=== PATIENT | female | born 1945 | race Caucasian/White ===

== ENCOUNTER → 2017-04-17 | Outpatient (CLI) | payer MEDICARE ==
[2015-07-23 14:15] VITALS: BP 148/77
[~2017-04-17] MED LIST: ASPI-482 PO; ATORVASTATIN CA80 MG PO; CARV6.252 PO; MULT1TAB97 PO
[2017-04-17 09:57] LABS: ALBUMIN 3.5 g/dL (3.4-5.0); ALBUMIN/GLOBULIN RATIO 0.8 (1.0-1.7); CREATININE 0.8 mg/dL (0.6-1.0); GFR 70.9; POTASSIUM 4.4 mmol/L (3.5-5.1); TOTAL BILIRUBIN 0.6 mg/dL (0.2-1.0)
[2017-04-17 10:20] LABS: FREE T4 0.85 ng/dL (0.76-1.46)
== END | disposition home or self-care (01) ==
LOC: LAB 09:10
PROVIDERS: ATTEND Psychiatry & Neurology Neurology
DX: R41.3 Other amnesia (principal)
CPT/HCPCS: 36415; 80053; 82306; 82607; 84439; 84443

== ENCOUNTER → 2017-05-01 | Outpatient (CLI) | payer BC ==
[2015-07-23 14:15] VITALS: BP 148/77
== END | disposition home or self-care (01) ==
LOC: RT 08:58
PROVIDERS: ATTEND Psychiatry & Neurology Neurology
DX: R41.3 Other amnesia (principal)
CPT/HCPCS: 95816

== ENCOUNTER → 2018-05-06 | Outpatient (CLI) | payer BC ==
[2018-05-06 18:41] LABS: VITAMIN-B12 552 pg/mL (247-911)
== END | disposition home or self-care (01) ==
LOC: LAB 14:56
DX: M81.0 Age-related osteoporosis without current pathological fracture (principal); R41.3 Other amnesia
CPT/HCPCS: 36415; 82306; 82607

== ENCOUNTER → 2018-05-19 | Outpatient (CLI) | payer BC | END | disposition home or self-care (01) | LOC: RT 08:12 | DX: R56.9 Unspecified convulsions (principal) | CPT/HCPCS: 95816 ==

== ENCOUNTER 2018-11-01 07:48 | Day surgery (SDC) | payer BC ==
[~2018-11-01] VITALS: Ht 165.1 cm; Wt 72.1 kg
[~2018-11-01 07:48] MED LIST changes: +ALEN70TA5 PO; +CARV6.2511 PO; -CARV6.252 PO; +HYDROmorphone 2 MG/ML VIAL IV PRN; +IV RINGERS,LACTATED 1000ML 1,000 ML IV SCH; +LIDOCAINE 1% PF 2 ML VIAL. ID PRN; +LISI10TA2 PO; +MORPHINE SULFATE 2 MG/ML VIAL. IV PRN; +ONDANSETRON PF 4 MG/2 ML VIAL. IV PRN; +PROCHLORPERAZINE 10 MG/2 ML VIAL. IV PRN; +VITA1CAP PO; +fentaNYL PF VIAL 100 MCG/2 ML VIAL IV PRN
[2018-11-01] MEDS ORDERED: fentaNYL PF VIAL 100 MCG/2 ML VIAL ONE ×4 (08:34→11:57)
[2018-11-01] MEDS ORDERED: LIDOCAINE 2% PF Vial for OR 5 ML VIAL. ONE (08:34)
[2018-11-01] MEDS ORDERED: PROPOFOL 20 ML IV ONE (08:34)
--- NOTE | 2018-11-01 09:33 | DISCH ---
DISCHARGE INSTRUCTIONS Condition on Discharge Condition on Discharge: Stable Activity After Discharge Activity Instructions for Disc: Other, see below Other activity instructions: arm to remain in sling; NWB LUE Bathing Instructions: Shower-keep dressing dry Driving Instructions after Dis: Do not drive today Weight Bearing Status after Di: Non weight bearing Diet after Discharge Diet after Discharge: Regular Wound Incision Care Wound/Incision Care: Ice to area for comfort, Keep wound/cast CDI, Keep wound elevated, Do not change dressing Checks after Discharge Checks after discharge: Check blood press - daily Contacting the DRElia after DC Call your doctor for: Concerns you may have Follow-Up Follow up with: Yeyo in 2 wks NOBLE HIGHTOWER II, MD Nov 01, 2018 09:33
[2018-11-01] MEDS ORDERED: BUPIVACAINE MPF 0.5% 30 ML VIAL. ONE (09:49)
[2018-11-01] MEDS ORDERED: LIDOCAINE 1% 20 ML VIAL. ONE (09:49)
[2018-11-01] MEDS ORDERED: methylPREDNISolone ACETATE 80 MG/ML VIAL. ONE (09:51)
[2018-11-01] MEDS ORDERED: DEXAMETHASONE SOD PHOS 20 MG/5 ML VIAL. ONE (10:00)
[2018-11-01] MEDS ORDERED: ONDANSETRON PF 4 MG/2 ML VIAL. ONE (10:00)
[2018-11-01] MEDS ORDERED: ePHEDrine PF IN SALINE 50 MG/5 ML DISP.SYRIN IV ONE (10:04)
[2018-11-01] MEDS ORDERED: hydrALAZINE 20 MG/ML VIAL. ONE (10:12)
[2018-11-01] MEDS ORDERED: SEVOFLURANE 61 TO 120 MINUTES. IH ONE ×2 (10:39→10:58)
[2018-11-01] MEDS ORDERED: SEVOFLURANE 31 TO 60 MINUTES. IH ONE (10:43)
--- NOTE | 2018-11-01 11:11 | PDOC4 ---
Operative Note Operative Note Date of procedure: 11/01/2018 Surgeon: Ruben Hightower Electrophysiology Technologist: Tim Villanueva APRN Preoperative diagnosis: #1 Displaced and angulated left distal radius fracture #2 right knee primary degenerative joint disease Postoperative diagnosis: Same Procedure performed: #1 Open reduction internal fixation extra-articular left distal radius fracture #2 right knee injection with 80 mg of Depo-Medrol and local anesthetic Anesthesia: Gen. Findings: Acute fracture Tourniquet time: 36 min Blood loss: 10mL Components inserted: Cook and nephew volar 4-hole distal radius locking plate Complications: none Reason for procedure: Patient is a very pleasant female who had a ground-level fall about 2 weeks ago. She was referred to my outpatient orthopedic surgery clinic from the emergency department. I evaluated her clinically and discussed the rationale to operative intervention after examining her in the radiographs. The risks, benefits, alternatives were discussed with her and she wished to proceed. Description was procedure: Patient was greeted in the preoperative area by myself where the correct extremity was verified and marked. She was taken to the operative suite and her antibiotics were started as she was brought back. Once in the operating room, she was transferred gently supine to the operating table and secured to the bed with all pressure points padded. Successful induction of a general anesthetic placed. I then used a ChloraPrep over her superolateral right knee and injected 80 mg of Depo-Medrol and local anesthetic without competition. The area was cleansed and dried and a sterile dressing was applied. A nonsterile tourniquet was applied to her left upper extremity and the left upper extremity had the splint removed and a chlorhexidine pre-scrub performed. The left upper trimming was then prepped and draped in our usual sterile fashion and we conducted our standard preoperative timeout. After this, I palpated and marked surface anatomy and barbara a line from my standard volar distal radius incision. I palpated and marked the radial artery. The extremity was then exsanguinated with an Esmarch and tourniquet insufflated to 250 mmHg. After this, I incised skin with a scalpel and dissected subcutaneous tissues tissue until identified the FCR tendon with tenotomies. I then incised fascia in line with the skin incision. I bluntly dissected down to the pronator quadratus and took this off with electrocautery. I used the periosteal elevator to expose the distal radius. I used a metal tipped suction, small curet, and dental pick to debride the fracture site. I then performed my reduction maneuver and held my plate in place with digital pressure Y confirmed good reduction and plate position on AP oblique and lateral fluoroscopic imaging. I then secured the plate to the bone with a nonlocking screw. I then placed locking screws into the distal segment followed by securing the plate to the bone with more nonlocking screws proximal the fracture site. I then took my final images and irrigated out the operative field. Pronator was reapproximated with gxfyiu-by-kstzh 2-0 Vicryl. Fascia was left open. Inverted interrupted 2 was used for subcutaneous tissue and 3-0 nylon in a mattress fashion for skin. I injected local anesthetic around the isamar-incisional soft tissues. The arm was cleansed and dried. Prior to closing skin, all counts correct 2 and the tourniquet had been let down and bleeders cauterized. At this point, we placed a well-padded sugar tong splint. She was then awakened from anesthesia, she tolerated surgery well. She was transferred gently supine to the recovery room cart and taken to PACU in a stable and extubated condition per postoperative plan is to be nonweightbearing. Elevation and active range of motion at fingers encouraged. We will see her back in 2 weeks, sooner should a problem arise. She will be discharged today. RUBEN HIGHTOWER II, MD Nov 01, 2018 11:11
[2018-11-01] MEDS ORDERED: HYDROcodone/APAP 5/325MG 1 TAB TABLET PO ONE (11:30)
[2018-11-01] MEDS: fentaNYL PF VIAL 100 MCG/2 ML VIAL IV PRN ×4 (11:38→12:13)
[2018-11-01] MEDS ORDERED: MORPHINE SULFATE 2 MG/ML VIAL. ONE (11:50)
[2018-11-01 12:45] VITALS: BP 166/84
== END 2018-11-01 12:45 | disposition home or self-care (01) ==
LOC: SURG 07:48
PROVIDERS: ATTEND Orthopaedic Surgery Sports Medicine
DX: S52.552A Other extraarticular fracture of lower end of left radius, initial encounter for closed fracture (principal); M17.11 Unilateral primary osteoarthritis, right knee; I25.10 Atherosclerotic heart disease of native coronary artery without angina pectoris; Z95.1 Presence of aortocoronary bypass graft; Z88.1 Allergy status to other antibiotic agents; W18.39XA Other fall on same level, initial encounter; Y93.89 Activity, other specified; Y92.89 Other specified places as the place of occurrence of the external cause; Y99.8 Other external cause status
CPT/HCPCS: 20610; 25607; 76000; A7015; C1713; J0360; J0690; J1040; J1100; J2001; J2270; J2405; J2704; J3010; J3490

== ENCOUNTER 2018-12-05 10:03 | Emergency (ER) | payer BC ==
[~2018-12-05] VITALS: Ht 162.6 cm; Wt 70.3 kg
[~2018-12-05 10:03] MED LIST changes: -HYDROmorphone 2 MG/ML VIAL IV PRN; -IV RINGERS,LACTATED 1000ML 1,000 ML IV SCH; -LIDOCAINE 1% PF 2 ML VIAL. ID PRN; -MORPHINE SULFATE 2 MG/ML VIAL. IV PRN; -ONDANSETRON PF 4 MG/2 ML VIAL. IV PRN; -PROCHLORPERAZINE 10 MG/2 ML VIAL. IV PRN; -fentaNYL PF VIAL 100 MCG/2 ML VIAL IV PRN
--- NOTE | 2018-12-05 10:42 | EKG ---
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
[2018-12-05] MEDS ORDERED: cloNIDine HCL 0.1 MG TABLET PO ONE (10:45)
[2018-12-05 11:00] LABS: BASO % 1 % (0-3); CALCIUM 9.2 mg/dL (8.5-10.1); CREATININE 0.8 mg/dL (0.6-1.0); EOS # 0.1 x10^3/uL (0.0-0.7); EOS % 2 % (0-3); GFR 70.5; HEMATOCRIT 44.2 % (36.0-47.0); HEMOGLOBIN 15.5 g/dL (12.0-15.5); LYMPH # 1.3 x10^3/uL (1.0-4.8); LYMPH % 19 % (24-48); MEAN CORPUSCULAR HEMOGLOBIN 31 pg (25-35); MEAN CORPUSCULAR HGB CONC 35 g/dL (31-37); MEAN CORPUSCULAR VOLUME 87 fL (79-100); MONO # 0.5 x10^3/uL (0.0-1.1); MONO % 8 % (0-9); NEUT # 4.9 x10^3uL (1.8-7.7); NEUT % 71 % (31-73); PLATELET COUNT 234 x10^3/uL (140-400); POTASSIUM 3.5 mmol/L (3.5-5.1); RED BLOOD COUNT 5.08 x10^6/uL (3.50-5.40); RED CELL DISTRIBUTION WIDTH 14.3 % (11.5-14.5); WHITE BLOOD COUNT 6.9 x10^3/uL (4.0-11.0)
[2018-12-05 11:08] LABS: ALBUMIN 3.2 g/dL (3.4-5.0); ALBUMIN/GLOBULIN RATIO 0.8 (1.0-1.7); TOTAL BILIRUBIN 0.6 mg/dL (0.2-1.0); TOTAL PROTEIN 7.2 g/dL (6.4-8.2)
--- NOTE | 2018-12-05 11:37 | PHYS DOC ---
Past Medical History Past Medical History: Anxiety, CVA, Depression, High Cholesterol, Heart Disease , Hypertension, Other Additional Past Medical Histor: short term memory loss post cva Past Surgical History: Coronary Bypass Surgery, Other Additional Past Surgical Histo: left wrist Alcohol Use: None Drug Use: None Adult General Chief Complaint Chief Complaint: HYPERTENSION HPI HPI Patient is a 73 year old female presents the emergency room a chief complaint of high blood pressure has been in the 190s at home her head felt a little heavy but she's had no headache no chest pain no shortness of breath at this time she has had intermittent dyspnea on exertion for a year she is trying to quit smoking her doctor who has retired Dr. Bronson thought that that was related to the smoking. Currently she feels fine her son finally convinced her to come to the emergency room due to the elevated blood pressure that she has been checking daily since . Review of Systems Review of Systems Constitutional: Denies fever or chills [] Eyes: Denies change in visual acuity, redness, or eye pain [] HENT: Denies nasal congestion or sore throat [] Musculoskeletal: Denies back pain or joint pain [] Integument: Denies rash or skin lesions [] Neurologic: Denies headache, focal weakness or sensory changes [] All other systems were reviewed and found to be within normal limits, except as documented in this note. Current Medications Current Medications Current Medications Medications (Trade) Dose Ordered Sig/Telly Start Time Stop Time Status Last Admin Dose Admin Clonidine HCl (Catapres) 0.1 mg 1X ONCE 12/05/18 10:45 12/05/18 10:46 DC 12/05/18 10:52 0.1 MG Allergies Allergies Allergies Coded Allergies Type Severity Reaction Last Updated Verified niacin Adverse Reaction Intermediate HALLUCINATIONS 10/29/18 Yes Physical Exam Physical Exam Constitutional: Well developed, well nourished, no acute distress, non-toxic appearance. [] HENT: Normocephalic, atraumatic, bilateral external ears normal, oropharynx moist, no oral exudates, nose normal. [] Eyes: PERRLA, EOMI, conjunctiva normal, no discharge. [] Neck: Normal range of motion, no tenderness, supple, no stridor. [] Cardiovascular:Heart rate regular rhythm, no murmur [] Lungs & Thorax: Bilateral breath sounds clear to auscultation [] Abdomen: Bowel sounds normal, soft, no tenderness, no masses, no pulsatile masses. [] Skin: Warm, dry, no erythema, no rash. [] Back: No tenderness, no CVA tenderness. [] Extremities: No tenderness, no cyanosis, no clubbing, ROM intact, no edema. [] Neurologic: Alert and oriented X 3, normal motor function, normal sensory function, no focal deficits noted. [] Psychologic: Affect normal, judgement normal, mood normal. [] Current Patient Data Vital Signs Vital Signs Date Time Temp Pulse Resp B/P (MAP) Pulse Ox O2 Delivery O2 Flow Rate FiO2 12/05/18 11:42 54 10 95 12/05/18 10:52 192/93 12/05/18 10:12 99.5 Room Air 99.5 Lab Values Laboratory Tests Test 12/05/18 10:29 White Blood Count 6.9 x10^3/uL (4.0-11.0) Red Blood Count 5.08 x10^6/uL (3.50-5.40) Hemoglobin 15.5 g/dL (12.0-15.5) Hematocrit 44.2 % (36.0-47.0) Mean Corpuscular Volume 87 fL (79-100) Mean Corpuscular Hemoglobin 31 pg (25-35) Mean Corpuscular Hemoglobin Concent 35 g/dL (31-37) Red Cell Distribution Width 14.3 % (11.5-14.5) Platelet Count 234 x10^3/uL (140-400) Neutrophils (%) (Auto) 71 % (31-73) Lymphocytes (%) (Auto) 19 % (24-48) L Monocytes (%) (Auto) 8 % (0-9) Eosinophils (%) (Auto) 2 % (0-3) Basophils (%) (Auto) 1 % (0-3) Neutrophils # (Auto) 4.9 x10^3uL (1.8-7.7) Lymphocytes # (Auto) 1.3 x10^3/uL (1.0-4.8) Monocytes # (Auto) 0.5 x10^3/uL (0.0-1.1) Eosinophils # (Auto) 0.1 x10^3/uL (0.0-0.7) Basophils # (Auto) 0.0 x10^3/uL (0.0-0.2) Sodium Level 141 mmol/L (136-145) Potassium Level 3.5 mmol/L (3.5-5.1) Chloride Level 104 mmol/L (98-107) Carbon Dioxide Level 28 mmol/L (21-32) Anion Gap 9 (6-14) Blood Urea Nitrogen 11 mg/dL (7-20) Creatinine 0.8 mg/dL (0.6-1.0) Estimated GFR (Cockcroft-Gault) 70.5 BUN/Creatinine Ratio 14 (6-20) Glucose Level 94 mg/dL (70-99) Calcium Level 9.2 mg/dL (8.5-10.1) Total Bilirubin 0.6 mg/dL (0.2-1.0) Aspartate Amino Transferase (AST) 18 U/L (15-37) Alanine Aminotransferase (ALT) 17 U/L (14-59) Alkaline Phosphatase 112 U/L (46-116) Troponin I Quantitative 0.051 ng/mL (0.000-0.055) Total Protein 7.2 g/dL (6.4-8.2) Albumin 3.2 g/dL (3.4-5.0) L Albumin/Globulin Ratio 0.8 (1.0-1.7) L Laboratory Tests 12/05/18 10:29 Laboratory Tests 12/05/18 10:29 EKG EKG [] Interpretation Time: EKG shows normal sinus rhythm rate of [address] changes noted laterally. No STEMI seen interpreted by me time of encounter. SIMILAR TO 07/21/15 Radiology/Procedures Radiology/Procedures [] Course & Med Decision Making Course & Med Decision Making Pertinent Labs and Imaging studies reviewed. (See chart for details) []71-year-old female presenting with essentially a symptomatic hypertension. Improvement in the emergency room with a dose of clonidine EKG looks the same labs look good amlodipine was added to her lisinopril retroverted recommended follow-up within 2 weeks for recheck of blood pressure return precautions advised no evidence of end organ damage in the emergency room reviewed with son who is in agreement. Dragon Disclaimer Dragon Disclaimer This electronic medical record was generated, in whole or in part, using a voice recognition dictation system. Departure Departure Impression: Primary Impression: Elevated blood pressure reading Disposition: 01 HOME, SELF-CARE Condition: IMPROVED Referrals: UNKNOWN PCP NAME (PCP) Scripts Amlodipine Besylate (AMLODIPINE BESYLATE) 5 Mg Tablet 5 MG PO DAILY, #30 TAB Prov: EMELINA MICHELLE MD 12/05/18 EMELINA MICHELLE MD Dec 05, 2018 11:37
[2018-12-05 11:42] VITALS: BP 167/81
[2018-12-05] MEDS ORDERED: AMLO5TAB7 PO (11:55)
== END 2018-12-05 12:10 | disposition home or self-care (01) ==
LOC: ER 10:03
DX: R03.0 Elevated blood-pressure reading, without diagnosis of hypertension (principal); E78.00 Pure hypercholesterolemia, unspecified; I10 Essential (primary) hypertension; Z95.1 Presence of aortocoronary bypass graft; Z88.8 Allergy status to other drugs, medicaments and biological substances
CPT/HCPCS: 36415; 80053; 84484; 85025; 93005; 99284

== ENCOUNTER → 2019-01-07 | Outpatient (CLI) | payer BC ==
[~2019-01-07] MED LIST changes: -ALEN70TA5 PO; +ALEN70TA60 PO; +AMLO5TAB10 PO; +REGADENOSON 0.4 MG/5 ML DISP.SYRIN. IV ONE
--- NOTE | 2019-01-07 12:14 | CARD ---
MR#: [id number] Date of Study: 01/07/2019 Ordering Physician: SHARI FIELDS, Referring Physician: SHARI FIELDS Tech: Martha Stewart RDCS APPROVED REPORT EXAM: Two-dimensional and M-mode echocardiogram with Doppler and color Doppler. Other Information Quality : Technically LimitedHR: 50bpm Rhythm : BradycardiaTechnically limited study due to smoking. INDICATION CAD 2D DIMENSIONS RVDd3.0 (2.9-3.5cm)Left Atrium(2D)3.3 (1.6-4.0cm) IVSd1.1 (0.7-1.1cm)Aortic Root(2D)3.5 (2.0-3.7cm) LVDd3.8 (3.9-5.9cm)LVOT Diameter1.9 (1.8-2.4cm) PWd0.9 (0.7-1.1cm)LVDs2.3 (2.5-4.0cm) FS (%) 38.1 %SV41.5 ml LVEF(%)69.1 (>50%) M-Mode DIMENSIONS Left Atrium(MM)3.71 (2.5-4.0cm)Aortic Root3.68 (2.2-3.7cm) Aortic Valve AoV Peak Manoj.119.8cm/sAoV VTI25.7cm AO Peak GR.5.7mmHgLVOT Peak Manoj.104.5cm/s AO Mean GR.3mmHgAVA (VMAX)2.56cm2 SAURABH (VTI)2.60cm2 Mitral Valve MV E Lgmeqkqu65.2cm/sMV DECEL [id number] MV A Hddbvsaw46.5cm/sE/A Ratio0.8 MV A Qzbfdayj19gu Pulmonary Valve PV Peak Gzdomxqy22.8cm/s Tricuspid Valve TR P. Kjckmmyi519ul/sRAP RGHPRNFW0hbDa TR Peak Gr.20ktDlXHPO61oeYu LEFT VENTRICLE The left ventricle is normal size. There is normal left ventricular wall thickness. The left ventricu lar systolic function is normal. The Ejection Fraction is 60-65%. There is normal LV segmental wall m otion. Transmitral Doppler flow pattern is Grade I-abnormal relaxation pattern. RIGHT VENTRICLE The right ventricle is normal size. There is normal right ventricular wall thickness. The right ventr icular systolic function is normal. ATRIA The left atrium size is normal. The right atrium size is normal. The interatrial septum is intact wit h no evidence for an atrial septal defect or patent foramen ovale as noted on 2-D or Doppler imaging. AORTIC VALVE The aortic valve is normal in structure and function. The aortic valve is trileaflet. Doppler and Col or Flow revealed trace aortic regurgitation. There is no significant aortic valvular stenosis. MITRAL VALVE The mitral valve is normal in structure and function. There is no evidence of mitral valve prolapse. There is no mitral valve stenosis. Doppler and Color-flow revealed trace to mild mitral regurgitation . TRICUSPID VALVE The tricuspid valve is normal in structure and function. Doppler and Color Flow revealed trace tricus pid regurgitation. The PA pressure was estimated at 23 mmHg. There is no tricuspid valve prolapse or vegetation. There is no tricuspid valve stenosis. PULMONIC VALVE Pulmonic valve not well visualzied. GREAT VESSELS The aortic root is mildly enlarged. The ascending aorta is Mildly dilated. The IVC is normal in size and collapses >50% with inspiration. PERICARDIAL EFFUSION There is no evidence of significant pericardial effusion. Critical Notification Critical Value: No <Conclusion> The left ventricular systolic function is normal. The Ejection Fraction is 60-65%. There is normal LV segmental wall motion. Transmitral Doppler flow pattern is Grade I-abnormal relaxation pattern. Trace to mild mitral regurgitation. Trace tricuspid regurgitation. The PA pressure was estimated at 23 mmHg. The aortic root and ascending aorta are mildly enlarged. There is no evidence of significant pericardial effusion. Signed by : Shari Fields, Electronically Approved : 01/07/2019 12:11:48
--- NOTE | 2019-01-07 13:34 | RAD ---
MR#: [id number] Date of Study: 01/07/2019 Ordering Physician: SHARI KING, Referring Physician: SHARI KING, Tech: Tim Porter MBA, RDMS, RVT, RDCS, RTR APPROVED REPORT Patient Location: OUT-PATIENT Laterality:Bilateral Indications CAD Doppler Spectral Velocity Analysis Right Left pCCA 69/15 cm/spCCA 87/22 cm/s mCCA 69/17 cm/smCCA 79/21 cm/s dCCA 50/15 cm/sdCCA 73/22 cm/s Bulb 69/20 cm/sBulb 82/20 cm/s ECA 109/ cm/sECA 103/ cm/s pICA 79/24 cm/spICA 80/24 cm/s Melvi 67/23 cm/smICA 59/23 cm/s dICA 68/20 cm/sdICA 59/22 cm/s Vert. 49/ cm/sVert. 57/ cm/s Subcl. 60/ cm/sSubcl. 53/ cm/s ICA/CCA 1.14ICA/CCA 0.92 Findings Grayscale images of the bilateral common carotid and external/internal carotid vessels reveal mild pl aque on the left and moderate plaque on the right. Spectral waveforms and color Doppler throughout the carotid arterial tree is within normal limits. IC A to CCA ratios are within normal limits. Critical Notification Critical Value: No <Conclusion> No significant stenosis noted in the bilateral carotid arterial tree. Normal antegrade velocities in the vertebral arteries bilaterally. Signed by : Hilario Hernandez, Electronically Approved : 01/07/2019 13:32:12
--- NOTE | 2019-01-07 14:30 | RAD ---
MR#: [id number] Date of Study: 01/07/2019 Ordering Physician: SHARI KING, Referring Physician: DAYTON DOMINGUEZ Tech: SUSAN Parada APPROVED REPORT Test Type: Pharmacological Stress Nurse/Tech: Balta Sharp RN Test Indications: CAD Cardiac History: CABG, [place] 2009, HTN, Smoker, TIA Medications: See Electronic Medical Record Medical History: See Electronic Medical Record Resting ECG: SR Resting Heart Rate: 53 bpm Resting Blood Pressure: 116/66mmHg Pretest Chest Pain: None Nurse/Tech Notes Lungs CTA, S1S2 Consent: The procedure was explained to the patient in lay terms. Informed consent was witnessed. Durga eout was entered into [employer]. History and Stress Test performed by Balta Sharp RN Pharm. Details Pharmacologic stress testing was performed using 0.4mg per 5ml of regadenoson given intravenously ove r 7-10 seconds. Stress Symptoms No chest pain or symptoms. POST EXERCISE Reason for Termination: Infusion complete Max HR: 83 bpm Max Blood Pressure: 125/65mmHg Blood Pressure response to exercise: Normal blood pressure response during stress. Heart Rate response to exercise: normal response Chest Pain: No. Arrhythmia: No. ST Change: No. INTERPRETATION Stress EKG Conclusion: Baseline EKG showed sinus rhythm. No ischemic changes at peak stress. No arr hythmias. Imaging Protocol IMAGE PROTOCOL: Rest Tc-99m/stress Tc-99m 1 day Rest: Stress: Viability: Radiopharm.Tc99m PwlfxkxemCd68o Sestamibi Cqfv12dHa 33mCi Duration 15min. 10min. Img Date 01/07/2019 01/07/2019 Inj-Img Kavn93xmf. 60min. Rest Admin Site:IV - Right AntecubitalAdministrator:BILLY Rankin, ARRT (R)(N) Stress Admin Site: IV - Right AntecubitalAdministrator: Marcus Fink, RT (R)(N) STRESS DATA End Diast. Vol.55.0mlAv. Heart Rate67.0bpm End Syst. Vol.10.0mlCO Index BSA3.0L/min Myocardial Zwqj495.0gEject. Jbtfczqn62.0% Stress Rates Pk. Fill Rate3.36EDV/secLVtime Pk. Fill 264.65msec Pk. Empty Rate4.80ESV/secLVtime Pk. Alenr367.49msec 1/3 Pk. Fill1.20EDV/sec Stress Scores Regional WT0.00Summed WT4.00 Regional WM0.00Summed WM5.00 Study quality was good. Left Ventricular size was Normal at Rest and Stress. Lung uptake was . Left Ventricular ejection fraction is 82%. The rest and stress images show normal perfusion, normal contraction and thickening. LV Perf. Quant 17 Seg. SSS0.00 17 Seg. SRS0.00 17 Seg. SDS0.00 Stress Defect Extent (% LAD)0.00Rest Defect Extent (% LAD)0.00Rev. Defect Extent (% LAD)0.00 Stress Defect Extent (% LCX) 0.00Rest Defect Extent (% LCX)0.00Rev. Defect Extent (% LCX)0.00 Stress Defect Extent (% RCA)0.00Rest Defect Extent (% RCA)0.00Rev. Defect Extent (% RCA)0.00 Stress Defect Extent (% FRIDA)0.00Rest Defect Extent (% FRIDA)0.00Rev. Defect Extent (% FRIDA)0.00 Conclusion 1. Regadenoson cardioisotope stress test did not show any evidence of ischemia or infarct. 2. Normal left ventricular systolic function with ejection fraction calculated at 82%. 3. Low risk for cardiac events. Signed by : Shari King, Electronically Approved : 01/07/2019 14:27:55
== END | disposition home or self-care (01) ==
LOC: NM 09:15
PROVIDERS: ATTEND Internal Medicine Cardiovascular Disease
DX: I31.3 Pericardial effusion (noninflammatory) (principal); G45.9 Transient cerebral ischemic attack, unspecified; I25.10 Atherosclerotic heart disease of native coronary artery without angina pectoris; I25.2 Old myocardial infarction; I10 Essential (primary) hypertension; F17.210 Nicotine dependence, cigarettes, uncomplicated; Z95.1 Presence of aortocoronary bypass graft
CPT/HCPCS: 78452; 93017; 93306; 93880; 96374; A9500; J2785

== ENCOUNTER → 2019-08-24 | Outpatient (CLI) | payer BC ==
[~2019-08-24] MED LIST changes: +ALEN70TA6 PO; -ALEN70TA60 PO; -REGADENOSON 0.4 MG/5 ML DISP.SYRIN. IV ONE
--- NOTE | 2019-08-24 16:31 | KCIC ---
MRI Brain without contrast History: Memory loss, episodes of vertigo Technique: Multiplanar, multisequential noncontrast MR imaging was performed of the brain. Comparison: September 09, 2013 Findings: There is some motion degradation. There is no evidence of recent infarct or cytotoxic edema. There is no intra-axial mass effect, midline shift or extra-axial fluid collection. There is again mild to moderate third and lateral ventriculomegaly although there is supratentorial atrophy present. Overall size of ventricles is similar. There is multifocal cguk-cw-belewvxf T2 and FLAIR hyperintense abnormality of the supratentorial parenchyma bilaterally greatest of the periventricular white matter with some extent to the deep white matter, somewhat progressed since previous exam. There are again old lacunar infarcts of the bilateral basal ganglia and left centrum semiovale. There are a couple of small foci of old microhemorrhage left cerebellum. There is small focus of encephalomalacia with cortical involvement of the left occipital lobe unchanged. There are again a few small old cerebellar lacunar infarcts greater on the left. There is preservation of the major arterial flow voids at the skull base. There is nonspecific increased CSF signal of optic nerve sheaths bilaterally. There is minimal patchy bilateral ethmoid air cell mucosal thickening. There is left rex bullosa. There is mild deviation nasal septum to the right. Mastoid air cells are aerated. Cerebellar tonsils are normal in location. There is nonspecific mild heterogeneity of the marrow of the nonexpanded clivus. There is again probable small cyst of the pineal gland about 0.5 cm. There is no significant abnormality of small pituitary gland. Impression: 1. There is no evidence of recent infarct or intracranial mass effect. There is scattered multifocal T2 and FLAIR hyperintense signal abnormality of the supratentorial parenchyma somewhat progressed since 2013 exam, nonspecific findings which may be due to chronic microvascular ischemic disease. There are again old lacunar infarcts as stated, also a couple of small foci of old microhemorrhage of the left cerebellum. There is again small old infarct with cortical involvement of the left occipital lobe. There is again third and lateral ventriculomegaly although there is supratentorial atrophy and size of ventricles very similar to 2013 exam. 2. There is again nonspecific increased CSF signal of optic nerve sheaths and small pituitary gland, findings which could be incidental unless suspicion for hypertension. Electronically signed by: Cirilo Owens MD (08/24/2019 4:28 PM) [id number]
== END | disposition home or self-care (01) ==
LOC: KCIC MRI 15:08
PROVIDERS: ATTEND Nurse Practitioner Family
DX: G93.89 Other specified disorders of brain (principal); I63.9 Cerebral infarction, unspecified; G31.9 Degenerative disease of nervous system, unspecified; J34.89 Other specified disorders of nose and nasal sinuses
CPT/HCPCS: 70551